=== PATIENT | male | born 1955 | race Caucasian/White ===

== ENCOUNTER 2016-12-23 10:07 | Inpatient (IN) | payer OTHER ==
[~2016-12-23] VITALS: Ht 182.9 cm; Wt 68.0 kg
--- NOTE | ~2016-12-23 | HC ---
[facility] [place] [address] CONSULTATION Name: LEAH TABARES Room #: 452-P [facility] IN M.R.#: [id number] Admission: 12/23/16 Attend Phys: Nathan Regalado MD Discharge: 12/24/16 Date of : 55 Report #: [id number] THIS REPORT FOR: //name// CC: Naif Regalado DATE OF SERVICE: 12/24/2016 HISTORY OF PRESENT ILLNESS: The patient is a 60-year-old white male who was admitted after being found on the floor confused with syncopal episode. He does have a prior history of seizure disorder and has also had a prior CVA. He was transferred to [facility]. CT of the head was negative. He had not bitten his tongue, but was noted to have a low Dilantin level. There is a question as to whether he had had a seizure. His Dilantin is being increased. Neurology is involved. MRI of the brain showed some encephalomalacia, postoperative changes in the left frontal lobe and possibly within the left temporal lobe. No acute hydrocephalus was noted. No acute infarction. PAST MEDICAL HISTORY: Does include a prior craniotomy for evacuation of a left-sided subdural hematoma. We are seeing him in rehabilitation medicine consultation. His past medical history includes a prior CVA in . He had the subtotal hematuria status post craniotomy for evacuation, history of AL approximately 3 years ago, hyperlipidemia, alcoholism, seizure disorder, hypertension, low back pain. MEDICATIONS: Please see the full medication listing. ALLERGIES: No known drug allergies. SOCIAL HISTORY: , noted to be functionally disabled after head injuries from falls as a result of subdural hematoma and his alcoholism. This is per Dr. Naif Avendano's prior social history. He lives in his own house alone, did not use any gait aids. His parents have at next door. There is a daughter who lives close by who notes that she stayed at home and could not stay with him. FAMILY HISTORY: Prostate CA. No history of colon cancer. REVIEW OF SYSTEMS: No complaints of chest pain, shortness of breath, abdominal discomfort. No focal extremity pain complaints. PHYSICAL EXAMINATION: GENERAL: A 60-year-old white male in no obvious distress. VITAL SIGNS: Last recorded temperature 100.1, pulse 79, respirations 18, blood pressure 152/93. NEUROLOGIC: He is alert. He is pleasant. He was unable to name the year or the place. He is not a fully cooperative with my testing of these areas. [address] [address] CONSULTATION Name: LEAH TABARES [place] Room #: [address] [place] [address] IN M.R.#: [id number] Admission: 12/23/16 Attend Phys: Nathan Regalado MD Discharge: 12/24/16 Date of : 55 Report #: [id number] Facies appeared to be symmetric, dentition is poor. EOMs appeared full. I could not detect any obvious visual field neglect to confrontation. He has functional range of motion of both upper and lower extremities. Strength is a grade 4 to 4+/5. DTRs trace to 1. He was contact guard to ambulate to and from the bathroom. ASSESSMENT: A 60-year-old white male with the following problem list: 1. Syncopal episode questions seizure with significant cognitive deficits. 2. Premorbid subdural hematoma evacuation as well as seizure disorder and alcoholism with cognitive impairment. 3. Seizure disorder with last seizure in 2006. 4. Subdural hematoma removed in 2006. 5. History of prior expressive aphasia. 6. ETOH history. 7. Hypertension. 8. Chronic back pain. Has had epidural blocks unsuccessful in 2004. 9. Right knee tendon repair from football injury in 1994. 10. History of tobacco abuse, still smoking. PLAN: Therapy evaluations are continuing. I will need to assess his current cognitive status to see how much different he is now from his premorbid. We will further assess and follow along with you regarding his rehab therapy needs. By: [id number] Jerardo Edmondson MD /nt
--- NOTE | ~2016-12-23 | EEG ---
[facility] [place] [address] ELECTROENCEPHALOGRAM Name: LEAH TABARES Room #: 452-P ADM IN M.R.#: [id number] Admission: 12/23/16 Attend Phys: Nathan Regalado MD Discharge: Date of : 55 Report #: [id number] THIS REPORT FOR: //name// CC: Naif Regalado DATE OF SERVICE: 12/23/2016 This patient is being evaluated for the possibility of seizure. EEG was done by placing the electrodes by standard 10-20 system of electrode placement. Both referential and sequential montages were used for recording. Background activity in this patient's EEG is about 9 Hz and 40 microvolt on the right side. It appeared to be suppressed on the left side as compared to the right side. Voltage is usually higher on the right as compared to the left side normally, but this appeared to be more than what is expected. This patient became drowsy that is associated with bilateral slowing. Photic stimulation was unremarkable. I did not see any active epileptiform activity. IMPRESSION: This patient's EEG demonstrates slowing on the left side. That is a nonspecific abnormality, which can occur with any destructive process on the left cerebral hemisphere. I did not see any active epileptiform activity. Thank you very much for this referral. By: [id number] Altaf Quinonez MD /nt
--- NOTE | ~2016-12-23 | EKG ---
[address] [address] ELECTROCARDIOGRAM REPORT Name: LEAH TABARES [place] Room #: 452- ADM IN M.R.#: [id number] Admission: 12/23/16 Attend Phys: Nathan Regalado MD Discharge: Date of : 55 Report #: [id number] THIS REPORT FOR: //name// [facility] Test Date: 2016-12-23 Test Time: 10:51:53 Pat Name: LEAH TABARES Department: Room: 452 Gender: M [employer] Operator: arun : 1955 Requested By: Nathan Regalado Order Number: [id number] MD: Camilo Domingo Measurements Intervals [place] Rate: 85 P: 30 NE: 192 QRS: 12 QRSD: 107 T: 28 QT: 385 QTc: 458 Interpretive Statements Sinus rhythm No significant abnormality Compared to ECG 12/04/2015 11:38:44 Left ventricular hypertrophy no longer present Electronically Signed On 12-24-2016 8:54:06 CDT by Camilo Domingo [email or web address] <ELECTRONICALLY SIGNED> By: Camilo Domingo MD, [facility] 12/24/16 [id number] [id number] Camilo Domingo MD, [facility] /EPI
[2016-12-23 09:00] VITALS: BP 105/65; BP 155/93
[~2016-12-23 10:07] MED LIST: ASPIR 8181 MG PO; CARVEDILOL3.125 MG PO; DILANTIN100 MG PO; IBUPROFEN 600600 M1 PO; LISINOPRIL10 MG PO; LOPRESSOR 50 MG50 M1 PO; MAGNESIUM400 MG PO; PEPCID20 MG PO; PHENYTOIN SODI100 M3 PO; SIMVASTATIN20 MG PO; TRINATE TABLET1 TAB PO; VITAMIN B-1100 M1 PO
[2016-12-23 12:10] LABS: HEMOGLOBIN 13.6 gm/dL (14.0-18.0); MCH 29.8 pg (26.0-34.0); RBC 4.58 mil/uL (4.50-6.00)
[2016-12-23 12:12] LABS: ABSOLUTE NEUTROPHILS 13.6 thou/uL (1.4-8.2); BASOPHILS 0.1 % (0.0-2.0); HEMATOCRIT 39.5 % (42.0-52.0); LYMPHOCYTES 7.3 % (24.0-44.0); MCHC 34.6 g/dL (28.0-37.0); MCV 86.2 fL (80.0-100.0); MONOCYTES 5.8 % (1.0-8.0); PLATELET COUNT 312 thou/uL (150-400); POLYS 86.8 % (36.0-66.0); RDW 14.2 % (10.5-14.5); WBC 15.6 thou/uL (4.0-11.0)
[2016-12-23 12:13] LABS: MANUAL DIFF NO
[2016-12-23 12:22] LABS: CALCIUM 8.3 mg/dL (8.5-10.1); CREATININE 0.7 mg/dL (0.7-1.3); POTASSIUM 3.4 mmol/L (3.5-5.1)
[2016-12-23 12:29] LABS: TROPONIN-I 0.04 ng/mL (<0.04-0.07)
[2016-12-23 13:01] VITALS: BP 154/92
[2016-12-23 16:42] VITALS: BP 157/90
[2016-12-23 19:16] VITALS: BP 138/73
[2016-12-23 23:43] VITALS: BP 132/82
[2016-12-24 03:17] VITALS: BP 126/78
[2016-12-24 07:34] VITALS: BP 152/93
[2016-12-24 11:31] VITALS: BP 160/111
[2016-12-24 15:31] VITALS: BP 160/111
[2016-12-24] MEDS ORDERED: DILANTIN100 MG PO ×2 (16:02)
[2016-12-24 16:18] VITALS: BP 160/111
== END 2016-12-24 16:37 | disposition home health service (06) | DRG 312 ==
LOC: 4E 10:07 → 4W 10:15
PROVIDERS: Hospitalist
DX: R55 Syncope and collapse (principal); G40.909 Epilepsy, unspecified, not intractable, without status epilepticus; E78.5 Hyperlipidemia, unspecified; I10 Essential (primary) hypertension; T14.8 Other injury of unspecified body region; F10.20 Alcohol dependence, uncomplicated; G31.84 Mild cognitive impairment of uncertain or unknown etiology; G89.29 Other chronic pain; M54.9 Dorsalgia, unspecified; F17.220 Nicotine dependence, chewing tobacco, uncomplicated; Z79.899 Other long term (current) drug therapy; Z86.73 Personal history of transient ischemic attack (TIA), and cerebral infarction without residual deficits; I25.2 Old myocardial infarction; Z80.42 Family history of malignant neoplasm of prostate; Z79.82 Long term (current) use of aspirin
CPT/HCPCS: 10045